=== PATIENT | female | born 1990 | race Caucasian/White ===

== ENCOUNTER → 2016-08-14 | Outpatient (CLI) | payer OTHER ==
--- NOTE | 2016-08-14 17:10 | DIAGNOSTIC IMAGING REPORT ---
PROCEDURE: US COMPLETE PELVIC W/TRANSVAG INDICATION: PELVIC PAIN TECHNIQUE: Transabdominal and endovaginal rivas scale and color Doppler sonographic images of the female pelvis were obtained. COMPARISON: None. FINDINGS: TRANSABDOMINAL SCANS: The uterus is of normal size 7 x 2.7 x 3.8 cm Kidneys are normal. TRANSVAGINAL SCANS: The uterus is anteverted. Myometrium is normal. The endometrium measures 7.3 mm. Right ovary is normal measuring 4.2 x 2.1 x 3.5 cm The left ovary is normal measuring 2.8 x 1.9 x 2.3 cm Numerous small peripheral ovarian follicles are noted bilaterally. IMPRESSION: 1. Normal uterus and ovaries and kidneys.
== END ==
LOC: US SRH 16:10
DX: N93.9 Abnormal uterine and vaginal bleeding, unspecified (principal)